=== PATIENT | male | born 1995 | race Asian ===

== ENCOUNTER 2016-12-19 20:04 | Emergency (ER) | payer BC, OTHER ==
[2016-12-19 20:08] VITALS: BP 134/80; PULSE 83; RESP 14; TEMP 98.1; O2SAT 95
[2016-12-19] MEDS ORDERED: diphenhydrAMINE 25 MG CAP PO ONE (20:35)
[2016-12-19] MEDS ORDERED: predniSONE 20 MG TAB PO ONE (20:35)
--- NOTE | 2016-12-19 20:40 | EDPHY ---
H & P Stated Complaint: thinks he has bed bugs Time Seen by Provider: 12/19/16 20:37 HPI/ROS: HPI: This is a 21-year-old male who presents with Chief Complaint: Bed bug bites Location: Skin Quality: Bedbug bites Duration: 1 week Signs and Symptoms: No fever, no rash, no sore throat, no joint pain, + pruritus Timing: Worsening Severity: Moderate Context: Patient is a local college student, moved into an apartment in November presents with complaints of extremely pruritic bites all over his body. He wakes up in the middle night with pruritus. He reports he has had the same mattress since last semester. No new or old furniture. Apartment does have carpet. Roommates do not have similar symptoms or bites. Does not have any allergies. Does not have a pet. Patient reports he is going to sleep in a hotel this evening. Patient has past control coming to his apartment tomorrow. Modifying Factors: Not tried any [id number] medications Comment: ROS: see HPI Constitutional: No fever, no chills, no weight loss Eyes: No blurred vision Respiratory: No shortness of breath, no cough Cardiovascular: No chest pain Gastrointestinal: No nausea, no vomiting, no diarrhea Genitourinary: No dysuria Extremities: No myalgias Neurologic: No weakness, no numbness Skin: No rashes Hematologic: No bruising, no bleeding MEDICAL/SURGICAL/SOCIAL HISTORY: Medical history: Generally healthy. Does not take any regular medications. Surgical history: Denies Social history: Student CONSTITUTIONAL: awake and alert, no obvious distress HEENT: Atraumatic and normocephalic, PERRL, EOMI. Tympanic membranes clear. Oropharynx clear, no exudate and moist pink mucosa. Airway patent. No lymphadenopathy. No meningismus. Cardiovascular: Normal S1/S2, regular rate, regular rhythm, without murmur rub or gallop. PULMONARY/CHEST: Symmetrical and nontender. Clear to auscultation bilaterally. Good air movement. No accessory muscle usage. ABDOMEN: Soft, nondistended, nontender, no rebound, no guarding, no peritoneal signs, no masses or organomegaly. No CVAT. EXTREMITIES: 2/2 pulses, strength 5/5, no deformities, no clubbing, no cyanosis or edema. NEUROLOGICAL: no focal neuro deficits. GCS 15. SKIN: Warm and dry, scattered from neck to ankle pinpoint slightly erythematous 1-2 mm lesion noted; areas of excoriations from scratching noted. no erythema. no rash. Good capillary refill. Source: Patient Exam Limitations: No limitations - Personal History Current Tetanus/Diphtheria Vaccine: Unsure - Medical/Surgical History Hx Asthma: No Hx Chronic Respiratory Disease: No Hx Diabetes: No Hx Cardiac Disease: Yes Hx Renal Disease: No Hx Cirrhosis: No Hx Alcoholism: No Hx HIV/AIDS: No Hx Splenectomy or Spleen Trauma: No Other PMH: PMHx: VSD. PSHx: denies - Social History Smoking Status: Current every day smoker Constitutional: Initial Vital Signs Temperature (C) 36.7 C 12/19/16 20:05 Heart Rate 83 12/19/16 20:05 Respiratory Rate 14 12/19/16 20:05 Blood Pressure 134/80 H 12/19/16 20:05 O2 Sat (%) 95 12/19/16 20:05 O2 Delivery Mode Room Air Allergies/Adverse Reactions: Sulfa (Sulfonamide Antibiotics) Allergy (Verified 12/19/16 20:05) Home Medications: Medication Instructions Recorded hydrOXYzine HCL [hydrOXYzine HCL 25 mg PO Q6 PRN #12 tab 12/19/16 (RX)] predniSONE [predniSONE TAPER] 10 mg PO DAILY 6 Days ea 12/19/16 Medical Decision Making ED Course/Re-evaluation: Afebrile and no systemic signs. Given p.o. prednisone and Benadryl No signs of scabies/lice/cellulitis/abscess Advised supportive care and find source to remove. Differential Diagnosis: Differential diagnosis includes bedbugs, contact dermatitis, scabies, lice. Departure - Departure Disposition: Home, Routine, Self-Care Clinical Impression: Multiple insect bites Condition: Good Instructions: Bed Bugs (ED), Insect Bite or Sting (ED) Additional Instructions: Please take Benadryl every 4 hours as needed for itching and allergic reaction. You may also use hydroxyzine every 6 hours as needed for itching. Please complete steroid taper. Please remove offending agent. Referrals: DERRELL Wolf,. [Clinic] - As per Instructions Prescriptions: hydrOXYzine HCL [hydrOXYzine HCL (RX)] 25 mg PO Q6 PRN #12 tab PRN Reason: Itching predniSONE [predniSONE TAPER] 10 mg PO DAILY 6 Days ea
== END 2016-12-19 20:58 | disposition home or self-care (01) ==
DX: T14.8XXA Other injury of unspecified body region, initial encounter (principal); F17.200 Nicotine dependence, unspecified, uncomplicated; W57.XXXA Bitten or stung by nonvenomous insect and other nonvenomous arthropods, initial encounter